=== PATIENT | female | born 1995 | race Two or more races ===

== ENCOUNTER 2022-11-09 09:03 | Emergency (ER) | payer BC ==
[~2022-11-09] VITALS: Ht 165.1 cm; Wt 64.0 kg
[2022-11-09] MEDS ORDERED: ONDANSETRON HCL 4MG/2ML INJ IM ONE (11:30)
[2022-11-09] MEDS ORDERED: KETOROLAC 30MG/ML VIAL IM ONE (11:30)
[2022-11-09 12:46] VITALS: BP 128/76
== END 2022-11-09 12:42 | disposition home or self-care (01) ==
LOC: ER 09:03
DX: R11.0 Nausea (principal); J45.909 Unspecified asthma, uncomplicated
CPT/HCPCS: 81025; 96372; 99284; J1885; J2405; Z7610

== ENCOUNTER 2023-06-04 22:23 | Emergency (ER) | payer BC ==
[~2023-06-04] VITALS: Ht 172.7 cm; Wt 79.0 kg
[2023-06-04 22:27] VITALS: BP 140/94; PULSE 86; RESP 16; TEMP 98.1; O2SAT 99
[2023-06-04 23:16] LABS: BASOPHILS % 0.9 % (0.0-2.0); DIFFERENTIAL COMMENT 0; EOSINOPHILS % 0.8 % (0.0-5.0); HEMATOCRIT. 39.6 % (36.0-48.0); HEMOGLOBIN. 12.7 g/dL (12.0-16.0); LYMPHOCYTES % 41.4 % (20.0-50.0); MEAN CORPUSCULAR HEMOGLOBIN 32.6 pg (28.0-32.0); MEAN CORPUSCULAR HGB CONC 32.1 g/dL (31.0-37.0); MEAN CORPUSCULAR VOLUME 101.5 fL (81.0-99.0); MEAN PLATELET VOLUME 7.9 fl (7.4-10.4); MONOCYTES % 9.1 % (2.0-8.0); NEUTROPHILS % 47.8 % (40.0-76.0); PLATELET 253 x1000/uL (130-400); WHITE BLOOD COUNT 3.3 x1000/uL (4.5-11.0)
[2023-06-04 23:42] LABS: ACETAMINOPHEN 3 ug/mL (10-30); ALANINE AMINOTRANSFERASE 69 IU/L (10-49); ALBUMIN 3.8 g/dL (3.2-4.8); ASPARTATE AMINOTRANSFERASE 117 IU/L (<34); BILIRUBIN TOTAL 0.3 mg/dL (0.1-1.0); CALCIUM 8.4 mg/dL (8.7-10.4); CARBON DIOXIDE 21 mEq/L (21-32); CHLORIDE 105 mEq/L (98-107); CREATINE KINASE 123 IU/L (34-145); CREATININE 0.7 mg/dL (0.6-1.0); ETHANOL BLOOD 389 mg/dL (<10); GLUCOSE 124 mg/dL (70-105); POTASSIUM 3.5 mEq/L (3.5-5.1); PROTEIN TOTAL 6.4 g/dL (6.0-8.3); SODIUM 138 mEq/L (136-145); THYROID STIMULATING HORMONE 0.44 uIU/mL (0.55-4.78)
[2023-06-04 23:43] LABS: UREA NITROGEN BLOOD < 5 mg/dL (9-23)
[2023-06-05 00:05] LABS: LACTIC ACID 2.7 mmol/L (0.4-2.0)
[2023-06-05] MEDS ORDERED: SODIUM CHLORIDE 0.9% 1,000 ML IV ONE (00:15)
== END 2023-06-05 04:05 | disposition left against medical advice (07) ==
LOC: ER 22:23
DX: F10.129 Alcohol abuse with intoxication, unspecified (principal); F41.9 Anxiety disorder, unspecified; J45.909 Unspecified asthma, uncomplicated; Y90.8 Blood alcohol level of 240 mg/100 ml or more
CPT/HCPCS: 80053; 80307; 80329; 80320; 82550; 82962; 83605; 84443; 85025; 36415; 93005; 99284; J7030; G0480